=== PATIENT | male | born 1975 | race Caucasian/White ===

== ENCOUNTER 2017-10-03 09:02 | Emergency (ER) | payer MEDICAID ==
[~2017-10-03] VITALS: Ht 167.6 cm; Wt 63.6 kg
[2017-10-03] MEDS ORDERED: CLIN150C2 PO (09:32)
[2017-10-03 09:55] VITALS: BP 125/84
== END 2017-10-03 09:57 | disposition home or self-care (01) ==
LOC: ER 09:03
DX: S01.532A Puncture wound without foreign body of oral cavity, initial encounter (principal); Z88.8 Allergy status to other drugs, medicaments and biological substances; Z79.899 Other long term (current) drug therapy; Y08.89XA Assault by other specified means, initial encounter; Y93.89 Activity, other specified; Y92.89 Other specified places as the place of occurrence of the external cause; Y99.8 Other external cause status
CPT/HCPCS: 99283

== ENCOUNTER 2017-10-14 15:49 | Emergency (ER) | payer MEDICAID ==
[~2017-10-14] VITALS: Ht 167.6 cm; Wt 63.6 kg
[~2017-10-14 15:49] MED LIST: CLIN150C2 PO
[2017-10-14] MEDS ORDERED: TETanus/Pertussis (Acell)/Diphther VAC/PF (Tdap-Adult) 0.5ml syringe IMVAC ONE (16:20)
[2017-10-14] MEDS ORDERED: LIDOcaine 1.5% w/epinephrine 1:200,000 5ml ampul IJ ONE (17:10)
[2017-10-14] MEDS ORDERED: BACI28OI9 TP (17:45)
[2017-10-14] MEDS ORDERED: IBUP-1986 PO (17:45)
[2017-10-14 17:54] VITALS: BP 140/79
== END 2017-10-14 18:00 | disposition home or self-care (01) ==
LOC: ER 15:50
DX: S51.012A Laceration without foreign body of left elbow, initial encounter (principal); Z56.0 Unemployment, unspecified; Z60.2 Problems related to living alone; Z88.8 Allergy status to other drugs, medicaments and biological substances; Z79.899 Other long term (current) drug therapy; W17.89XA Other fall from one level to another, initial encounter; Y93.89 Activity, other specified; Y92.89 Other specified places as the place of occurrence of the external cause; Y99.8 Other external cause status
CPT/HCPCS: 12001; 73080; 90471; 90715; 99284; A6449; J3490

== ENCOUNTER 2017-10-30 15:33 | Emergency (ER) | payer MEDICAID ==
[~2017-10-30] VITALS: Ht 167.6 cm; Wt 59.0 kg
[~2017-10-30 15:33] MED LIST changes: +BACI28OI9 TP; +IBUP-1986 PO
[2017-10-30 15:42] VITALS: BP 122/78
== END 2017-10-30 16:03 | disposition home or self-care (01) ==
LOC: ER 15:34
DX: S51.012D Laceration without foreign body of left elbow, subsequent encounter (principal); V00.131D Fall from skateboard, subsequent encounter
CPT/HCPCS: 99281